=== PATIENT | female | born 1995 | race Caucasian/White ===

== ENCOUNTER 2016-11-06 20:06 | Emergency (ER) | payer OTHER ==
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
[2016-11-06 20:46] VITALS: BP 107/56; RESP 16; TEMP 98.8
[2016-11-06 20:50] VITALS: PULSE 71; O2SAT 95
== END 2016-11-06 20:50 | disposition home or self-care (01) ==
DX: S06.9X9A Unspecified intracranial injury with loss of consciousness of unspecified duration, initial encounter (principal); J45.909 Unspecified asthma, uncomplicated; V28.0XXA Motorcycle driver injured in noncollision transport accident in nontraffic accident, initial encounter; Y92.410 Unspecified street and highway as the place of occurrence of the external cause

== ENCOUNTER 2017-05-15 11:49 | Emergency (ER) | payer OTHER ==
[2017-05-15 11:54] VITALS: RESP 18; TEMP 98.4; O2SAT 98
[2017-05-15] MEDS ORDERED: KETOROLAC 30 MG/1 ML SDV IVP ONE (12:07)
[2017-05-15] MEDS ORDERED: ONDANSETRON 4 MG/2 ML VIAL IVP ONE (12:07)
--- NOTE | 2017-05-15 12:07 | EDPHY ---
H & P Stated Complaint: LUQ pain since yesterday;sent from [facility]; labs in hand Time Seen by Provider: 05/15/17 11:56 HPI/ROS: CHIEF COMPLAINT: HISTORY OF PRESENT ILLNESS: 21-year-old immunocompetent female arrives via private vehicle complaining of right flank and right upper quadrant pain for the past 24 hours with associated nausea no vomiting. Seen [facility] earlier today and referred to the emergency department. While [facility] she had multiple laboratory studies including white blood cell count 7.5 , negative test, normal liver function studies, positive hematuria. Not currently on her menstrual period. PRIMARY CARE PROVIDER: Hamida REVIEW OF SYSTEMS: A ten point review of systems was performed and is negative with the exception of the items mentioned in the HPI PAST MEDICAL & SURGICAL HISTORY: No history of abdominal surgeries. SOCIAL HISTORY: nonsmoker. Student. FAMILY HISTORY: positive family history nephrolithiasis PHYSICAL EXAM (Prior to examination, patient consented to physical exam, hands were washed and my usual and customary physical exam procedures followed) 1) GENERAL: Well-developed, well-nourished, alert and oriented. Appears uncomfortable. 2) HEAD: Normocephalic, atraumatic 3) HEENT: Pupils equal, round, reactive to light bilaterally. Sclera anicteric. 4) NECK: Full range of motion, no meningeal signs. 5) LUNGS: Clear auscultation bilaterally, no wheezes, no rhonchi, no retractions. 6) HEART: Regular rate and rhythm, no murmur, no heave, no gallop. 7) ABDOMEN: No guarding, no rebound, no focal tenderness, negative McBurney's, negative Ramirez's, negative Rovsing's, negative peritoneal sign, 8) MUSCULOSKELETAL: Moving all extremities, no focal areas of tenderness, no obvious trauma. No peripheral edema or discoloration. 9) BACK: positive right CVA tenderness, no midline vertebral tenderness, no fluctuance, no step-off, no obvious trauma, no visual or palpable abnormality. 10) SKIN: No rash, no petechiae. 11) Psychiatric: Patient is oriented X 3, there is no agitation. DIFFERENTIAL DIAGNOSIS: [in no particular include but limited to pyelonephritis , nephrolithiasis, acute cholecystitis, acute pancreatitis, acute appendicitis, ectopic - Personal History LMP (Females 10-55): 1-7 Days Ago Current Tetanus Diphtheria and Acellular Pertussis (TDAP): Yes - Medical/Surgical History Hx Asthma: Yes Hx Chronic Respiratory Disease: No Hx Diabetes: No Hx Cardiac Disease: No Hx Renal Disease: No Hx Cirrhosis: No Hx Alcoholism: No Hx HIV/AIDS: No Hx Splenectomy or Spleen Trauma: No Other PMH: migraines, anxiety, depression, asthma - Social History Smoking Status: Never smoked Constitutional: Initial Vital Signs Temperature (C) 36.9 C 05/15/17 11:52 Heart Rate 68 05/15/17 11:52 Respiratory Rate 18 05/15/17 11:52 Blood Pressure 116/72 05/15/17 11:52 O2 Sat (%) 98 05/15/17 11:52 O2 Delivery Mode Room Air Allergies/Adverse Reactions: codeine Allergy (Verified 05/15/17 11:51) zinc Allergy (Verified 05/15/17 11:51) Home Medications: Medication Instructions Recorded KLONOPIN 11/06/16 Rizatriptan 11/06/16 Seroquel 11/06/16 Sertraline HCl 11/06/16 Cephalexin [Keflex] 500 mg PO QID 7 Days 05/15/17 Medical Decision Making - Diagnostics Imaging Results: Imaging Impressions Abdomen/Pelvis CT 05/15/17 12:04 Impression: 1. Minimal stranding and fullness in the right renal pelvis. Differential diagnosis includes pyelonephritis versus recently passed ureteral calculus. 2. 3-cm right ovarian cyst and trace fluid in the pelvis. 3. Query gallbladder sludge. 4. Constipation and normal appendix. Findings discussed with Emergency Department physician cleaner assistant, Tone Covarrubias PA-C on May 15, 2017 at 1344 hours. Attention: This CT examination is specifically designed to evaluate patients who are clinically suspected of having acute obstructive uropathy. This examination does not use radiographic contrast, and as such, provides only a limited evaluation of the abdomen, pelvis and retroperitoneum. If there is further clinical suspicion for pathological conditions other than obstructive uropathy, a complete CT evaluation of the abdomen and pelvis utilizing intravenous, oral, and rectal contrast should be considered. Imaging: Discussed imaging studies w/ spirits model Radiologist ED Course/Re-evaluation: 12:09 p.m.: Patient is in significant discomfort. Will administer IV analgesia , obtain imaging studies. 1:30 p.m.: Re-evaluation, sleeping, asymptomatic 2:00 p.m.: Re-evaluation, sleeping, easily awoken. Discussed case Dr. Geoffrey Perez in the ER. Discussed possibility of a passed stone. She does have bacteriuria . Urine cultured, given dose of Rocephin, discharged with Keflex. I think she can be treated on outpatient basis. Doubt urosepsis. She feels comfortable with this plan. - Data Points Laboratory Results: Laboratory Results 05/15/17 12:13 05/15/17 12:13 05/15/17 05/15/17 05/15/17 13:30 12:13 12:13 WBC RBC Hgb Hct MCV MCH MCHC RDW Plt Count MPV Neut % (Auto) Lymph % (Auto) Stephens % (Auto) Eos % (Auto) Baso % (Auto) Nucleat RBC Rel Count Absolute Neuts (auto) Absolute Lymphs (auto) Absolute Monos (auto) Absolute Eos (auto) Absolute Basos (auto) Absolute Nucleated RBC Immature Gran % Immature Gran # Sodium 138 mEq/L mEq/L (134-144) Potassium 4.2 mEq/L mEq/L (3.5-5.2) Chloride 106 mEq/L mEq/L (97-110) Carbon Dioxide 20 mEq/l L mEq/l (22-31) Anion Gap 12 mEq/L mEq/L (8-16) BUN 11 mg/dL mg/dL (7-23) Creatinine 0.7 mg/dL mg/dL (0.6-1.0) Estimated GFR > 60 Glucose 81 mg/dL mg/dL (70-100) Calcium 9.7 mg/dL mg/dL (8.5-10.4) Total Bilirubin 0.5 mg/dL mg/dL (0.1-1.4) Conjugated Bilirubin 0.2 mg/dL mg/dL (0.0-0.5) Unconjugated Bilirubin 0.3 mg/dL mg/dL (0.0-1.1) AST 24 IU/L IU/L (14-46) ALT 33 IU/L IU/L (9-52) Alkaline Phosphatase 77 IU/L IU/L (38-126) Total Protein 7.7 g/dL g/dL (6.3-8.2) Albumin 3.9 g/dL g/dL (3.5-5.0) Lipase 85 IU/L IU/L (23-300) Beta HCG, Qual NEGATIVE Urine Color PALE YELLOW Urine Appearance CLEAR Urine pH 8.0 H (5.0-7.5) Ur Specific [place] 1.002 (1.002-1.030) Urine Protein NEGATIVE (NEGATIVE) Urine Ketones NEGATIVE (NEGATIVE) Urine Blood 2+ H (NEGATIVE) Urine Nitrate NEGATIVE (NEGATIVE) Urine Bilirubin NEGATIVE (NEGATIVE) Urine Urobilinogen NEGATIVE EU EU (0.2-1.0) Ur Leukocyte Esterase 3+ H (NEGATIVE) Urine RBC 5-10 /hpf H /hpf (0-3) Urine WBC 1-3 /hpf /hpf (0-3) Ur Epithelial Cells TRACE /lpf /lpf (NONE-1+) Urine Bacteria 3+ /hpf H /hpf (NONE SEEN) Urine Mucus TRACE /lpf /lpf (NONE-1+) Urine Glucose NEGATIVE (NEGATIVE) 05/15/17 12:13 WBC 9.10 10^3/uL 10^3/uL (3.80-9.50) RBC 4.93 10^6/uL 10^6/uL (4.18-5.33) Hgb 14.2 g/dL g/dL (12.6-16.3) Hct 42.7 % % (38.0-47.0) MCV 86.6 fL fL (81.5-99.8) MCH 28.8 pg pg (27.9-34.1) MCHC 33.3 g/dL g/dL (32.4-36.7) RDW 13.2 % % (11.5-15.2) Plt Count 377 10^3/uL 10^3/uL (150-400) MPV 8.8 fL fL (8.7-11.7) Neut % (Auto) 73.2 % % (39.3-74.2) Lymph % (Auto) 19.2 % % (15.0-45.0) Stephens % (Auto) 5.9 % % (4.5-13.0) Eos % (Auto) 0.8 % % (0.6-7.6) Baso % (Auto) 0.5 % % (0.3-1.7) Nucleat RBC Rel Count 0.0 % % (0.0-0.2) Absolute Neuts (auto) 6.65 10^3/uL H 10^3/uL (1.70-6.50) Absolute Lymphs (auto) 1.75 10^3/uL 10^3/uL (1.00-3.00) Absolute Monos (auto) 0.54 10^3/uL 10^3/uL (0.30-0.80) Absolute Eos (auto) 0.07 10^3/uL 10^3/uL (0.03-0.40) Absolute Basos (auto) 0.05 10^3/uL 10^3/uL (0.02-0.10) Absolute Nucleated RBC 0.00 10^3/uL 10^3/uL (0-0.01) Immature Gran % 0.4 % % (0.0-1.1) Immature Gran # 0.04 10^3/uL 10^3/uL (0.00-0.10) Sodium Potassium Chloride Carbon Dioxide Anion Gap BUN Creatinine Estimated GFR Glucose Calcium Total Bilirubin Conjugated Bilirubin Unconjugated Bilirubin AST ALT Alkaline Phosphatase Total Protein Albumin Lipase Beta HCG, Qual Urine Color Urine Appearance Urine pH Ur Specific [place] Urine Protein Urine Ketones Urine Blood Urine Nitrate Urine Bilirubin Urine Urobilinogen Ur Leukocyte Esterase Urine RBC Urine WBC Ur Epithelial Cells Urine Bacteria Urine Mucus Urine Glucose Medications Given: Discontinued Medications Sodium Chloride (Ns) 1,000 mls @ 0 mls/hr IV ONCE ONE PRN Reason: Wide Open Stop: 05/15/17 12:20 Last Admin: 05/15/17 12:20 Dose: 1,000 mls Ceftriaxone Sodium/Dextrose (Rocephin 1 Gm (Premix)) 50 mls @ 100 mls/hr IV EDNOW ONE PRN Reason: Protocol Stop: 05/15/17 14:26 Last Admin: 05/15/17 14:23 Dose: 50 mls Ketorolac Tromethamine (Toradol) 30 mg IVP EDNOW ONE Stop: 05/15/17 12:08 Last Admin: 05/15/17 12:18 Dose: 30 mg Ondansetron HCl (Zofran) 4 mg IVP EDNOW ONE Stop: 05/15/17 12:08 Last Admin: 05/15/17 12:19 Dose: 4 mg Departure - Departure Disposition: Home, Routine, Self-Care Clinical Impression: Acute pyelonephritis Condition: Good Instructions: Kidney Infection (ED), Flank Pain (ED) Additional Instructions: Return to the ER immediately if you experience fevers/chills, flu like symptoms , inability to tolerate oral intake, nausea or vomiting, or any other symptoms that concern you. Referrals: HAMIDA Sanches,. [Primary Care Provider] - As per Instructions Prescriptions: Cephalexin [Keflex] 500 mg PO QID 7 Days
[2017-05-15] MEDS ORDERED: NS 1,000 ML IV ONE (12:19)
[2017-05-15 12:24] LABS: % IMMATURE GRANULYOCYTES 0.4 % (0.0-1.1); ABSOLUTE IMMATURE GRANULOCYTES 0.04 10^3/uL (0.00-0.10); ADD DIFF? NO; ADD MORPH? NO; ADD SCAN? NO; ATYPICAL LYMPHOCYTE FLAG 20 (0-99); FRAGMENT RBC FLAG 0 (0-99); HEMATOCRIT 42.7 % (38.0-47.0); HEMOGLOBIN 14.2 g/dL (12.6-16.3); LEFT SHIFT FLG 0 (0-99); LIPEMIA HEMOLYSIS FLAG 80 (0-99); MEAN CELL HEMOGLOBIN 28.8 pg (27.9-34.1); MEAN CELL HEMOGLOBIN CONCENTR. 33.3 g/dL (32.4-36.7); MEAN CELL VOLUME 86.6 fL (81.5-99.8); MEAN PLATELET VOLUME 8.8 fL (8.7-11.7); PLATELET CLUMPS FLAG 0 (0-99); PLATELET COUNT 377 10^3/uL (150-400); RED BLOOD CELL COUNT 4.93 10^6/uL (4.18-5.33); RED CELL DISTRIBUTION WIDTH 13.2 % (11.5-15.2)
[2017-05-15 12:47] LABS: ALANINE AMINOTRANSFERASE 33 IU/L (9-52); ALBUMIN 3.9 g/dL (3.5-5.0); ALKALINE PHOSPHATASE 77 IU/L (38-126); ANION GAP 12 mEq/L (8-16); ASPARTATE AMINOTRANSFERASE 24 IU/L (14-46); BILIRUBIN,TOTAL 0.5 mg/dL (0.1-1.4); BILIRUBIN-CONJUGATED 0.2 mg/dL (0.0-0.5); BILIRUBIN-UNCONJUGATED 0.3 mg/dL (0.0-1.1); CALCIUM 9.7 mg/dL (8.5-10.4); CARBON DIOXIDE 20 mEq/l (22-31); CHLORIDE 106 mEq/L (97-110); CREATININE 0.7 mg/dL (0.6-1.0); GLOMERULAR FILTRATION RATE > 60; GLUCOSE 81 mg/dL (70-100); POTASSIUM 4.2 mEq/L (3.5-5.2); SODIUM 138 mEq/L (134-144); TOTAL PROTEIN 7.7 g/dL (6.3-8.2)
[2017-05-15 13:46] LABS: COLOR PALE YELLOW; LEUKOCYTE ESTERASE,URINE 3+ (NEGATIVE); NITRITE,URINE NEGATIVE (NEGATIVE)
[2017-05-15 13:49] LABS: BACTERIA 3+ /hpf (NONE SEEN); MUCUS TRACE /lpf (NONE-1+)
[2017-05-15 14:59] VITALS: BP 110/70; PULSE 64
== END 2017-05-15 14:59 | disposition home or self-care (01) ==
DX: N10 Acute pyelonephritis (principal); B96.20 Unspecified Escherichia coli [E. coli] as the cause of diseases classified elsewhere; J45.909 Unspecified asthma, uncomplicated
CPT/HCPCS: 96365; J0696; J1885; J2405